=== PATIENT | male | born 1940 | race Caucasian/White ===

== ENCOUNTER → 2016-04-03 | Outpatient (CLI) | payer OTHER ==
[~2016-04-03] MED LIST: ALLO300T2 PO; ASCA500 PO; ASPI325T39 PO; BNC20 PO; CINN1POW; ERGO1CAP35 PO; FLAXPOW2; GLIM4TAB PO; METF-384 PO; MULTCHW PO; SIMV20TA2 PO; TEST1SOL TD; XNX25 PO
[2016-04-03 13:50] LABS: URINE APPEARANCE CLEAR (CLEAR); URINE BILIRUBIN NEG (NEG); URINE COLOR DK YELLOW; URINE EPITHELIAL CELL AUTO 0-5 /lpf (0-5); URINE NITRITE NEG (NEG); URINE SPECIFIC GRAVITY 1.021 (1.000-1.030); UROBILINOGEN NEG (NEG)
[2016-04-03 13:58] LABS: MANUAL MICROSCOPIC REQUIRED? NO; REVIEW REQ? NO
== END | disposition home or self-care (01) ==
LOC: C.LAB1850 11:42
PROVIDERS: ATTEND Internal Medicine
DX: R39.198 Other difficulties with micturition (principal)

== ENCOUNTER → 2016-07-07 | Outpatient (CLI) | payer OTHER ==
[2016-07-07 11:13] LABS: ALT/SGPT 36 U/L (12-78); AST/SGOT 19 U/L (15-37); BLOOD UREA NITROGEN 24 mg/dl (7-18); BUN/CREATININE RATIO 18.7 (10-20); CALCIUM 9.1 mg/dl (8.5-10.1); CARBON DIOXIDE 25 mmol/L (21-32); CHLORIDE 109 mmol/L (98-107); CHOLESTEROL 123 mg/dl (0-200); GLUCOSE 111 mg/dl (70-99); POTASSIUM 4.2 mmol/L (3.5-5.1); SODIUM 143 mmol/L (136-145)
[2016-07-07 11:15] LABS: CHOLESTEROL/HDL RATIO 2.7; HDL CHOLESTEROL 45 mg/dl; LDL CHOLESTEROL CALCULATED 55 mg/dl; TRIGLYCERIDES 115 mg/dl (0-150); VERY LOW DENSITY LIPOPROT CALC 23 mg/dl
[2016-07-07 11:17] LABS: ESTIMATED AVERAGE GLUCOSE 146 mg/dl; HA1C FLAG Normal (Normal)
== END | disposition home or self-care (01) ==
LOC: C.LABBC 09:27
PROVIDERS: ATTEND Internal Medicine
DX: E11.9 Type 2 diabetes mellitus without complications (principal); E78.5 Hyperlipidemia, unspecified; I10 Essential (primary) hypertension

== ENCOUNTER → 2016-08-16 | Outpatient (CLI) | payer OTHER ==
[~2016-08-16] MED LIST changes: +GADAVIST IV PRN
--- NOTE | 2016-08-16 19:09 | DIAGNOSTIC IMAGING REPORT ---
ADDENDUM Comparison is possible now to outside radiographs. Comparison suggests a very small intertarsal osteophyte formation on a a degenerative basis. A very small rudimentary heel spur versus anatomic variation may be considered. No significant pathologic findings are identified. The original interpretation of the MRI is unchanged. Electronically signed by: Frank Wiggins M.D. 08/17/2016 9:42 AM Dictated Date/Time: 08/17/2016 9:40 AM ORIGINAL REPORT MRI right ankle RIGHT LOWER EXT NONJOINT COMBO CLINICAL HISTORY: CYST ON R HEEL Right abnormal cyst TECHNIQUE: Multiaxial MRI acquisition COMPARISON STUDY: None FINDINGS: Signal characteristics the osseous structures are in general unremarkable. There is evidence for several degenerative subchondral cysts of the subtalar joint. There are mild degenerative changes of the articular services throughout. The interosseous ligament is intact. All major ligamentous and tendinous structures are unremarkable. Findings of mild soft tissue edema with subcutaneous tissues inferior to the distal fibula. A component of mild peroneal tendinitis is considered. There is no evidence for abnormal postcontrast enhancement. No abnormal mass or collection is identified. The Achilles tendon is intact. Structures the plantar fascia are unremarkable. IMPRESSION: 1. Mild peroneal tendinitis. 2. Mild degenerative subchondral cystic change of the subtalar joint 3. No evidence for abnormal mass collection or postcontrast enhancement. Electronically signed by: Frank Wiggins M.D. 08/16/2016 7:08 PM Dictated Date/Time: 08/16/2016 7:06 PM
== END | disposition home or self-care (01) ==
LOC: C.MRI 16:50
PROVIDERS: ATTEND Podiatrist Primary Podiatric Medicine
DX: M25.871 Other specified joint disorders, right ankle and foot (principal); M76.71 Peroneal tendinitis, right leg

== ENCOUNTER → 2016-10-24 | Outpatient (CLI) | payer OTHER ==
[~2016-10-24] MED LIST changes: -GADAVIST IV PRN
[2016-10-24 12:24] LABS: BASO % 0.2 %; BASO ABS # 0.01 K/uL (0-0.2); COMPLETE YES; EOS % 1.6 %; HEMATOCRIT 42.1 % (42-52); IG% 0.2 %; LYMPH % 31.2 %; LYMPH ABS # 1.38 K/uL (1.2-3.4); MEAN CELL VOLUME 94.6 fL (80-100); MEAN CORPUSCULAR HEMOGLOBIN 31.7 pg (25-34); MEAN CORPUSCULAR HGB CONC 33.5 g/dl (32-36); MEAN PLATELET VOLUME 9.4 fL (7.4-10.4); MONO % 7.9 %; NEUT % 58.9 %; PLATELET COUNT 166 K/uL (130-400); RED BLOOD COUNT 4.45 M/uL (4.7-6.1); WHITE BLOOD COUNT 4.43 K/uL (4.8-10.8)
[2016-10-24 12:38] LABS: BLOOD UREA NITROGEN 23 mg/dl (7-18); BUN/CREATININE RATIO 17.9 (10-20); CALCIUM 9.1 mg/dl (8.5-10.1); CARBON DIOXIDE 24 mmol/L (21-32); CHLORIDE 110 mmol/L (98-107); GLUCOSE 142 mg/dl (70-99); POTASSIUM 4.2 mmol/L (3.5-5.1); SODIUM 141 mmol/L (136-145); URIC ACID 6.2 mg/dl (2.6-7.2)
[2016-10-24 12:48] LABS: CHOLESTEROL 123 mg/dl (0-200); HDL CHOLESTEROL 41 mg/dl; LDL CHOLESTEROL CALCULATED 58 mg/dl; TRIGLYCERIDES 120 mg/dl (0-150); VERY LOW DENSITY LIPOPROT CALC 24 mg/dl
[2016-10-24 13:14] LABS: ESTIMATED AVERAGE GLUCOSE 146 mg/dl; HA1C FLAG Normal (Normal)
== END | disposition home or self-care (01) ==
LOC: C.LAB1850 10:22
PROVIDERS: ATTEND Internal Medicine
DX: E11.9 Type 2 diabetes mellitus without complications (principal); E29.1 Testicular hypofunction; I10 Essential (primary) hypertension; M10.9 Gout, unspecified; E55.9 Vitamin D deficiency, unspecified; E78.5 Hyperlipidemia, unspecified

== ENCOUNTER → 2017-04-25 | Outpatient (CLI) | payer OTHER, MEDICARE ==
[2017-04-25 10:52] LABS: HEMOGLOBIN A1C 6.6 % (4.5-5.6)
[2017-04-25 11:00] LABS: ALT/SGPT 31 U/L (12-78); AST/SGOT 17 U/L (15-37); BLOOD UREA NITROGEN 29 mg/dl (7-18); CALCIUM 9.2 mg/dl (8.5-10.1); CARBON DIOXIDE 26 mmol/L (21-32); CREATININE 1.46 mg/dl (0.60-1.40); GLUCOSE 164 mg/dl (70-99); POTASSIUM 4.3 mmol/L (3.5-5.1); SODIUM 139 mmol/L (136-145)
[2017-04-25 11:03] LABS: CHOLESTEROL 125 mg/dl (0-200); LDL CHOLESTEROL CALCULATED 58 mg/dl
== END | disposition home or self-care (01) ==
LOC: C.LAB1850 09:33
PROVIDERS: ATTEND Internal Medicine
DX: E11.9 Type 2 diabetes mellitus without complications (principal); E78.5 Hyperlipidemia, unspecified

== ENCOUNTER → 2017-07-17 | Outpatient (CLI) | payer OTHER, MEDICARE ==
--- NOTE | 2017-07-17 16:21 | DIAGNOSTIC IMAGING REPORT ---
CHEST 2 VIEWS ROUTINE CLINICAL HISTORY: COUGH COMPARISON STUDY: 06/10/2015 FINDINGS: The cardiac and mediastinal contours are normal. There is no evidence of focal pulmonary consolidation. There is no evidence of failure. No pleural effusions are visualized.[ IMPRESSION: No active disease in the chest. Electronically signed by: Blake Cabrera M.D. 07/17/2017 4:20 PM Dictated Date/Time: 07/17/2017 4:20 PM
[2017-07-17 16:52] LABS: BASO % 0.5 %; BASO ABS # 0.03 K/uL (0-0.2); EOS % 1.6 %; EOS ABS # 0.09 K/uL (0-0.5); HEMATOCRIT 39.5 % (42-52); HEMOGLOBIN 13.9 g/dL (14.0-18.0); IG# 0.01 K/uL (0.00-0.02); LYMPH % 24.2 %; LYMPH ABS # 1.37 K/uL (1.2-3.4); MEAN CELL VOLUME 91.6 fL (80-100); MEAN CORPUSCULAR HEMOGLOBIN 32.3 pg (25-34); MEAN CORPUSCULAR HGB CONC 35.2 g/dl (32-36); MEAN PLATELET VOLUME 9.2 fL (7.4-10.4); MONO ABS # 0.45 K/uL (0.11-0.59); NEUT % 65.5 %; PLATELET COUNT 164 K/uL (130-400); RED CELL DISTRIBUTION WIDTH CV 12.7 % (11.5-14.5); RED CELL DISTRIBUTION WIDTH SD 42.7 fL (36.4-46.3); WHITE BLOOD COUNT 5.65 K/uL (4.8-10.8)
[2017-07-17 17:22] LABS: ALBUMIN 3.8 gm/dl (3.4-5.0); ALT/SGPT 29 U/L (12-78); AST/SGOT 15 U/L (15-37); BLOOD UREA NITROGEN 23 mg/dl (7-18); CALCIUM 8.8 mg/dl (8.5-10.1); CARBON DIOXIDE 24 mmol/L (21-32); CREATININE 1.31 mg/dl (0.60-1.40); GLUCOSE 113 mg/dl (70-99); POTASSIUM 4.4 mmol/L (3.5-5.1); SODIUM 140 mmol/L (136-145)
[2017-07-17 17:32] LABS: ALKALINE PHOSPHATASE 72 U/L (45-117); TOTAL PROTEIN 7.5 gm/dl (6.4-8.2)
[2017-07-18 06:40] LABS: HEMOGLOBIN A1C 7.2 % (4.5-5.6)
== END | disposition home or self-care (01) ==
LOC: C.RAD1850 15:50
PROVIDERS: ATTEND Internal Medicine
DX: R05 Cough (principal); E11.9 Type 2 diabetes mellitus without complications; R63.4 Abnormal weight loss

== ENCOUNTER → 2017-10-25 | Outpatient (CLI) | payer OTHER, MEDICARE ==
[~2017-10-25] MED LIST changes: +ALPR0.254 PO; +ASPI-461 PO; -ASPI325T39 PO; +CHOL2000 PO; -ERGO1CAP35 PO; +MISCCAP PO; -TEST1SOL TD; +TESTOSTERONE TOP; -XNX25 PO
[2017-10-25 12:23] LABS: ALT/SGPT 28 U/L (12-78); AST/SGOT 19 U/L (15-37); BLOOD UREA NITROGEN 18 mg/dl (7-18); CALCIUM 9.3 mg/dl (8.5-10.1); CARBON DIOXIDE 24 mmol/L (21-32); CHOLESTEROL 127 mg/dl (0-200); CREATININE 1.25 mg/dl (0.60-1.40); GLUCOSE 164 mg/dl (70-99); LDL CHOLESTEROL CALCULATED 57 mg/dl; POTASSIUM 4.2 mmol/L (3.5-5.1); SODIUM 140 mmol/L (136-145)
[2017-10-25 12:32] LABS: HEMOGLOBIN A1C 6.6 % (4.5-5.6)
== END | disposition home or self-care (01) ==
LOC: C.LAB1850 10:24
PROVIDERS: ATTEND Internal Medicine
DX: E11.9 Type 2 diabetes mellitus without complications (principal); E55.9 Vitamin D deficiency, unspecified; E78.5 Hyperlipidemia, unspecified

== ENCOUNTER 2024-08-27 19:31 | Inpatient (IN) ==
[2024-08-27 20:02] LABS: Basophils # (auto) 0.03 K/uL (0.00-0.20); Basophils % (auto) 0.3 %; Eosinophils # (auto) 0.05 K/uL (0.00-0.50); Eosinophils % (auto) 0.5 %; Hematocrit (blood only) 45.9 % (42.0-52.0); Hemoglobin 15.4 g/dl (14.0-18.0); Immature Granulocytes # (auto) 0.04 K/uL (0.01-0.20); Immature Granulocytes % (auto) 0.4 %; Lymphocytes % (auto) 12.3 %; Mean Corpuscular Hemoglobin 31.4 pg (25.0-34.0); Mean Corpuscular Hgb Conc 33.6 g/dL (32.0-36.0); Mean Corpuscular Volume 93.7 fL (80.0-100.0); Monocytes # (auto) 0.96 K/uL (0.11-0.59); Monocytes % (auto) 9.8 %; Neutrophils % (auto) 76.7 %; Platelet Count 151 K/uL (130-400); RDW Coefficient of Variation 13.1 % (11.5-14.5); RDW Standard Deviation 44.9 fL (36.4-46.3); White Blood Count 9.78 K/ul (4.8-10.8)
[2024-08-27 20:18] LABS: BUN Creatinine Ratio 17.2 (10-20); Bilirubin,Total 1.1 mg/dl (0.2-1.0); Calcium 9.3 mg/dl (8.6-10.3); Creatinine Clr Calc Pharmacy 29.7 ml/min; Globulin 3.5 gm/dl (2.5-4.0); Potassium 4.8 mmol/L (3.5-5.1); Total Protein 7.1 gm/dl (6.0-8.3)
[2024-08-27 20:25] LABS: Troponin I High Sensitivity 24.8 pg/ml (0-20)
[2024-08-27 20:33] LABS: Prothrombin Time 11.2 Seconds (9.0-12.0)
--- NOTE | 2024-08-27 20:56 | History & Physical Report ---
Date of Service August 27, 2024 Assessment & Plan (1) Chest pain: (2) LUIS (acute kidney injury): (3) CKD stage 3 due to type 2 diabetes mellitus: (4) Hypertension: Plan This patient is an 83-year-old male with history of HTN, primary hypogonadism, DM2 with peripheral neuropathy, HLD, CKD stage III, osteopenia, gout, previous PMR now off steroids, lumbar spinal stenosis, OA, anxiety/insomnia, who presents to the ED with several days of right sided pleuritic chest pain radiating to the back, worse with deep breaths and coughing. He denies fevers or chills or productive cough. He had been working on his hands and knees on the deck the day that it started and thought at first that maybe he strained a muscle. It does not seem to get worse with any certain position or movement. He has been feeling less stamina and more short of breath over the past few days. He was seen in the outpatient PCP office today and had a pulse ox of 85% on the right hand and 93% on the left hand with sinus tachycardia. He was sent for a D-dimer test which was quite elevated at 4000. He was referred to the ER but because of a creatinine of 2.0, CT angiogram of the chest could not be performed. In the ED, he was with sinus tachycardia, normal blood pressure, mildly elevated troponin, pulse ox 93% on room air, and ECG without ischemic changes. No further treatment or diagnostic tests were performed in the ED. He will be admitted for further evaluation of right sided chest pain. #Right sided chest pain-with pleuritic right-sided chest pain, tachycardia, transient hypoxemia at PCP office, mildly elevated troponin, and significantly elevated D-dimer at 4000-concern for PE. No evidence of DVT on physical examination and no provoking factors for VTE (no recent procedures, long travel, no sedentary lifestyle, no hereditary hypercoagulable disorders, no known underlying malignancy). ECG without ischemic changes and do not suspect pain related to acute coronary syndrome. Does not seem to be worse with movement and no tenderness to palpation-does not seem to be MSK in nature. Lungs are clear but CXR with trace pleural effusion on my interpretation. - Admit to PCU for telemetry monitoring - Check VQ scan for probability of PE; check lower extremity Dopplers bilateral - Start empiric heparin drip while awaiting VQ scan-if VQ scan low probability and venous Dopplers lower extremities negative, can stop heparin drip - Check CT chest without contrast to assess for MSK injury, pneumonia or pulmonary infarct - Check CT abdomen/pelvis given abdominal distention and to assess for underlying malignancy in case of VTE - Trend serial troponin, check BNP - Check echocardiogram - Tylenol for mild pain, IV Dilaudid 0.25 Mg every 4 hours as needed moderate to severe pain #LUIS on CKD stage III-creatinine above baseline at 2.0, baseline 1.7. He does not follow with nephrology. - Hold home Jardiance, metformin, spironolactone, telmisartan - Follow BMP - Avoid nephrotoxins and renally dose medications when appropriate #DM2 with peripheral neuropathy/primary hypogonadism-follows with endocrinology, diabetes is well-controlled with HgbA1c 7.3% in 07/2024 - Continue Lantus 10 units at bedtime, NovoLog supplemental insulin - Holding home Ozempic, metformin, and Jardiance - Hold home testosterone injection #Gout/osteopenia-no acute issues - Continue home allopurinol #Anxiety/insomnia-no acute issues, has not taken alprazolam in a long time apparently #HTN/HLD-blood pressures are normal - Holding home spironolactone, telmisartan for LUIS - Continue home simvastatin #DVT prophylaxis-heparin drip Disposition-admit to PCU History of Present Illness Chief Complaint: Chest pain, elevated D-dimer Primary Care Provider: Viet Navarro MD This patient is an 83-year-old male with history of HTN, primary hypogonadism, DM2 with peripheral neuropathy, HLD, CKD stage III, osteopenia, gout, previous PMR now off steroids, lumbar spinal stenosis, OA, anxiety/insomnia, who presents to the ED with several days of right sided pleuritic chest pain radiating to the back, worse with deep breaths and coughing. He denies fevers or chills or productive cough. He had been working on his hands and knees on the deck the day that it started and thought at first that maybe he strained a muscle. It does not seem to get worse with any certain position or movement. He has been feeling less stamina and more short of breath over the past few days. He was seen in the outpatient PCP office today and had a pulse ox of 85% on the right hand and 93% on the left hand with sinus tachycardia. He was sent for a D-dimer test which was quite elevated at 4000. He was referred to the ER but because of a creatinine of 2.0, CT angiogram of the chest could not be performed. In the ED, he was with sinus tachycardia, normal blood pressure, mildly elevated troponin, pulse ox 93% on room air, and ECG without ischemic changes. No further treatment or diagnostic tests were performed in the ED. He will be admitted for further evaluation of right sided chest pain. Allergies Allergy/AdvReac Type Severity Reaction Status Date / Time doxycycline Allergy Intermediate Rash Verified 08/27/24 12:52 Penicillins Allergy Mild Hives Verified 08/27/24 12:52 VARINDER Inhibitors Allergy Unknown Unknown Verified 08/27/24 12:52 Beta-Blockers Allergy Unknown Unknown Verified 08/27/24 12:52 (Beta-Adrenergic Bloc clindamycin Allergy Unknown Unknown Verified 08/27/24 12:52 losartan Allergy Unknown Unknown Verified 08/27/24 12:52 sitagliptin Allergy Unknown Unknown Verified 08/27/24 12:52 semaglutide [From Ozempic] AdvReac Intermediate Diarrhea Verified 08/27/24 12:52 Home Medications Medication Instructions Recorded Confirmed Type ascorbic acid (vitamin C) 500 mg 500 mg PO QAM 11/27/17 08/27/24 History tablet (Vitamin C) flaxseed 1 ea PO QAM 11/13/18 08/27/24 History osmpolyc-uv-ntswe 300 mcg-K 60 1 tab PO QAM 11/13/18 08/27/24 History mcg-lycop 600 mcg-lutein 300 mcg tablet (Centrum Silver Men) cholecalciferol (vitamin D3) 50 2,000 unit PO UD 12/02/19 08/27/24 History mcg (2,000 unit) capsule (Vitamin D3) Zn-pyg gzlk-cygghk-lfq palmet 1 cap PO QAM 03/06/22 08/27/24 History capsule alprazolam 0.25 mg tablet 0.25 mg PO UD PRN anxiety 03/06/22 08/27/24 History blood sugar diagnostic #300 ea 07/23/23 08/27/24 Rx allopurinol 300 mg tablet 150 mg (1/2 x 300 mg) PO QAM #45 02/27/24 08/27/24 Rx tabs metformin 1,000 mg tablet 500 mg (1/2 x 1,000 mg) PO BID 03/24/24 08/27/24 Rx #180 tabs blood-glucose meter (OneTouch 05/08/24 08/27/24 History Ultra2 Meter) empagliflozin 10 mg tablet 10 mg PO DAILY #90 tabs 05/08/24 08/27/24 Rx (Jardiance) lancets 33 gauge 05/08/24 08/27/24 History psyllium seed (sugar) oral powder 1 tbsp PO DAILY 05/08/24 08/27/24 History (Metamucil [place] oral powder) spironolactone 25 mg tablet 25 mg PO DAILY #90 tabs 05/11/24 08/27/24 Rx pen needle, diabetic 32 gauge x #300 ea 05/29/24 08/27/24 Rx 5/32" semaglutide 0.25 mg or 0.5 mg (2 0.25 mg (0.368 mL) subcut .Once a 07/09/24 08/27/24 Rx mg/3 mL) subcutaneous pen injector week #3 mL (Ozempic) simvastatin 20 mg tablet 20 mg PO HS #90 tabs 07/21/24 08/27/24 Rx testosterone cypionate 100 mg/mL 25 mg (0.25 mL) subcut Q7D #10 mL 08/04/24 08/27/24 Rx intramuscular oil (Depo-Testosterone) insulin aspart U-100 100 unit/mL 6 unit (0.06 mL) subcut DAILY #15 08/19/24 08/27/24 Rx (3 mL) subcutaneous pen (Novolog mL FlexPen U-100 Insulin aspart) telmisartan 80 mg tablet 80 mg PO QAM #90 tabs 08/20/24 08/27/24 Rx insulin degludec 100 unit/mL (3 See Rx Instructions .Route .COMPLEX 08/27/24 08/27/24 History mL) subcutaneous pen (Tresiba FlexTouch U-100 insulin) Past Med/Surg History Problem List (Updated 08/27/24 @ 22:40 by Nohemi Palomino MD) LUIS (acute kidney injury) Chest pain Medicare annual wellness visit, subsequent 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 Diabetes type 2, controlled (Chronic) Dyslipidemia Overweight Loss of protective sensation of skin of foot Dysesthesia Diabetic peripheral neuropathy associated with type 2 diabetes mellitus Polymyalgia rheumatica DJD (degenerative joint disease), lumbar Osteopenia Bilateral hip joint arthritis Lumbar stenosis Lumbar spondylosis Gout (Chronic) Hypertension (Chronic) History of colon polyps Medical History History of dysphagia "chews large pills or crush and put in applesauce; has to swallow most things twice" Vitamin D deficiency Surgical History Hx of left cataract extraction History of colonoscopy History of tooth extraction WISDOM TEETH History of tonsillectomy and adenoidectomy H/O right cataract extraction Family History Grandmother Family history of diabetes mellitus MATERNAL Father Aortic aneurysm Mother Lung cancer Denies family history of Ovarian cancer Prostate cancer Myocardial infarction Breast cancer Colorectal cancer Social History Smoking Status: Never smoker Tobacco Type: Declines Age Started Using Tobacco: 16; Age Quit Using Tobacco: 36; packs per day: 1; Second Hand Exposure: Yes (growing up); Do You Dip or Chew Tobacco: No; Hx Alcohol Use: Yes (Occasional wine ) Alcohol type: wine Hx Substance Use: No Preferred Language: [place] Communication Ability: Effective Visual Impairment: No Limitations Hearing Ability: Normal Edge Burnisher Required: No Beliefs That Will Affect Care: None marital status: Current Living Situation: Spouse current occupational status: retired How many Children do You have: 5 Feels Safe at Home: Yes Childhood Exposure to Second-Hand Smoke: Yes Dental Care, Regularly: Yes Physical Activity Frequency: 3-4 Times per Week Seatbelt Use: always Sunscreen Use: Yes Assistive Devices: Glasses Review of Systems Review of Systems: All systems reviewed & are unremarkable except as noted in HPI & below Patient reports increasing abdominal distention and constipation Physical Exam Constitutional: WD/WN, vitals as above Eyes: PERRL, conjunctivae normal, anicteric sclerae ENMT: external ear and nose normal, oropharynx normal Neck: trachea midline, no thyromegaly Respiratory: normal respiratory effort, lungs clear to auscultation Cardiovascular: RRR, no murmur, no edema Chest (Breasts): Chest: normal inspection of chest Additional Comments: No tenderness to palpation over chest wall or back Gastrointestinal (Abdomen): normal bowel sounds, soft, nontender, no hepatosplenomegaly (Mild distention) Musculoskeletal: Extremities: extremities normal to inspection; no cyanosis and no clubbing Skin: no rashes, warm and dry Neurologic: moves all extremities and awake; no focal motor deficits Psychiatric: A+Ox3, euthymic affect Lymphatic: no lymphedema Results & Data Results & Data Vital Signs (Past 12 Hours) Vital Signs Temp Pulse Resp BP Pulse Ox O2 Del Method 08/27/24 19:45 106 H 08/27/24 19:37 100 H 21 93 Room Air 08/27/24 19:35 36.6 C 110 H 20 112/64 91 Room Air Laboratory Results CBC, PT/INR, D-dimer, BMP, LFTs, troponin, lipase reviewed Diagnostic Findings CXR PA/LAT images personally reviewed by me-lungs are clear with a slight blunting of the right costophrenic angle likely trace pleural effusion-official radiology report pending ECG Additional Comments: ECG on 08/27/2024 at 1947 with sinus tachycardia, first-degree AV block, rate 102, no ischemic changes Code Status & VTE Plan Code Status Full code VTE Prophylaxis Plan VTE Prophylaxis will be ordered: Yes PG Care Time/CCT Total # of Minutes Spent Total Time Spent with Patient: Total time spent is greater than 50% in coordination of care (as documented) at patient's floor/unit and/or counseling patient: Coding Level of Care Code 97358 INT INP/OBS CARE 3/75MIN Diagnoses Chest pain R07.9 LUIS (acute kidney injury) N17.9 CKD stage 3 due to type 2 diabetes mellitus E11.22; N18.30 Primary hypertension I10 Hypertension type: primary hypertension (4) Hypertension Hypertension type: primary hypertension Qualified Code(s): I10 - Essential (primary) hypertension
[2024-08-27] MEDS ORDERED: HEPARIN SOD (PORCINE) 1000 UNIT/ML IV ONE (23:15)
[2024-08-27 23:17] LABS: Partial Thromboplastin Time 27 Seconds (21-31)
[2024-08-27] MEDS ORDERED: ONDANSETRON INJ 2 MG/ML 2 ML VIAL IV PRN (23:44)
[2024-08-27] MEDS ORDERED: DEXTROSE 50% 50 ML SYRINGE IV PRN (23:44)
[2024-08-27] MEDS ORDERED: CARBOHYDRATES FOR HYPOGLYCEMIA PO PRN (23:44)
[2024-08-27] MEDS ORDERED: GLUCOSE 40% GEL 15 GM TUBE PO PRN (23:44)
[2024-08-27] MEDS ORDERED: GLUCAGON FOR INJ 1 MG VIAL SQ PRN (23:44)
[2024-08-27] MEDS ORDERED: GLUCOSE 10 TAB/TUBE PO PRN (23:44)
--- NOTE | 2024-08-27 23:44 | Emergency Department Note ---
History of Present Illness General Chief Complaint: Referred by Doctor Stated Complaint: BLOOD CLOT RT LUNG CHECK, DOC REFERRAL Time Seen by Provider: 08/27/24 19:43 History of Present Illness Provider Complaint: + abnormal lab Initial visit (ago): day(s) (4) Returns today for: + called because of abnormal lab/test Description of abnormal result: Elevated D-dimer Associated symptoms: + chest pain (Right-sided chest pain. Worsened with deep breathing.) and + shortness of breath; no fever, no chills or no abdominal pain Home Medications Medication Instructions Recorded Confirmed Type ascorbic acid (vitamin C) 500 mg 500 mg PO QAM 11/27/17 08/27/24 History tablet (Vitamin C) flaxseed 1 ea PO QAM 11/13/18 08/27/24 History yjbtnqim-cy-lnkil 300 mcg-K 60 1 tab PO QAM 11/13/18 08/27/24 History mcg-lycop 600 mcg-lutein 300 mcg tablet (Centrum Silver Men) cholecalciferol (vitamin D3) 50 2,000 unit PO UD 12/02/19 08/27/24 History mcg (2,000 unit) capsule (Vitamin D3) Zn-pyg uknl-qfdled-utv palmet 1 cap PO QAM 03/06/22 08/27/24 History capsule alprazolam 0.25 mg tablet 0.25 mg PO UD PRN anxiety 03/06/22 08/27/24 History blood sugar diagnostic #300 ea 07/23/23 08/27/24 Rx allopurinol 300 mg tablet 150 mg (1/2 x 300 mg) PO QAM #45 02/27/24 08/27/24 Rx tabs metformin 1,000 mg tablet 500 mg (1/2 x 1,000 mg) PO BID 03/24/24 08/27/24 Rx #180 tabs blood-glucose meter (OneTouch 05/08/24 08/27/24 History Ultra2 Meter) empagliflozin 10 mg tablet 10 mg PO DAILY #90 tabs 05/08/24 08/27/24 Rx (Jardiance) lancets 33 gauge 05/08/24 08/27/24 History psyllium seed (sugar) oral powder 1 tbsp PO DAILY 05/08/24 08/27/24 History (Metamucil [place] oral powder) spironolactone 25 mg tablet 25 mg PO DAILY #90 tabs 05/11/24 08/27/24 Rx pen needle, diabetic 32 gauge x #300 ea 05/29/24 08/27/24 Rx /32" semaglutide 0.25 mg or 0.5 mg (2 0.25 mg (0.368 mL) subcut .Once a 07/09/24 08/27/24 Rx mg/3 mL) subcutaneous pen injector week #3 mL (Ozempic) simvastatin 20 mg tablet 20 mg PO HS #90 tabs 07/21/24 08/27/24 Rx testosterone cypionate 100 mg/mL 25 mg (0.25 mL) subcut Q7D #10 mL 08/04/24 08/27/24 Rx intramuscular oil (Depo-Testosterone) insulin aspart U-100 100 unit/mL 6 unit (0.06 mL) subcut DAILY #15 08/19/24 08/27/24 Rx (3 mL) subcutaneous pen (Novolog mL FlexPen U-100 Insulin aspart) telmisartan 80 mg tablet 80 mg PO QAM #90 tabs 08/20/24 08/27/24 Rx insulin degludec 100 unit/mL (3 See Rx Instructions .Route .COMPLEX 08/27/24 08/27/24 History mL) subcutaneous pen (Tresiba FlexTouch U-100 insulin) Allergies Allergy/AdvReac Type Severity Reaction Status Date / Time doxycycline Allergy Intermediate Rash Verified 08/27/24 12:52 Penicillins Allergy Mild Hives Verified 08/27/24 12:52 VARINDER Inhibitors Allergy Unknown Unknown Verified 08/27/24 12:52 Beta-Blockers Allergy Unknown Unknown Verified 08/27/24 12:52 (Beta-Adrenergic Bloc clindamycin Allergy Unknown Unknown Verified 08/27/24 12:52 losartan Allergy Unknown Unknown Verified 08/27/24 12:52 sitagliptin Allergy Unknown Unknown Verified 08/27/24 12:52 semaglutide [From Ozempic] AdvReac Intermediate Diarrhea Verified 08/27/24 12:52 Past Med/Surg History Problem List (Updated 08/27/24 @ 23:44 by Dionicio Rodriguez MD) D-dimer, elevated (Acute) LUIS (acute kidney injury) (Acute) Chest pain (Acute) Medicare annual wellness visit, subsequent 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 Diabetes type 2, controlled (Chronic) Dyslipidemia Overweight Loss of protective sensation of skin of foot Dysesthesia Diabetic peripheral neuropathy associated with type 2 diabetes mellitus Polymyalgia rheumatica DJD (degenerative joint disease), lumbar Osteopenia Bilateral hip joint arthritis Lumbar stenosis Lumbar spondylosis Gout (Chronic) Hypertension (Chronic) History of colon polyps Medical History History of dysphagia "chews large pills or crush and put in applesauce; has to swallow most things twice" Vitamin D deficiency Surgical History Hx of left cataract extraction History of colonoscopy History of tooth extraction WISDOM TEETH History of tonsillectomy and adenoidectomy H/O right cataract extraction Family History Grandmother Family history of diabetes mellitus MATERNAL Father Aortic aneurysm Mother Lung cancer Denies family history of Ovarian cancer Prostate cancer Myocardial infarction Breast cancer Colorectal cancer Social History Smoking Status: Never smoker Tobacco Type: Declines Age Started Using Tobacco: 16; Age Quit Using Tobacco: 36; packs per day: 1; Second Hand Exposure: Yes (growing up); Do You Dip or Chew Tobacco: No; Hx Alcohol Use: Yes (Occasional wine ) Alcohol type: wine Hx Substance Use: No Preferred Language: Bots[place] Communication Ability: Effective Visual Impairment: No Limitations Hearing Ability: Normal Grocery Clerk Required: No Beliefs That Will Affect Care: None marital status: Current Living Situation: Spouse current occupational status: retired How many Children do You have: 5 Feels Safe at Home: Yes Childhood Exposure to Second-Hand Smoke: Yes Dental Care, Regularly: Yes Physical Activity Frequency: 3-4 Times per Week Seatbelt Use: always Sunscreen Use: Yes Assistive Devices: Glasses Physical Exam 2 Vital Signs: Vital Signs - 24 hr 08/27/24 19:35 08/27/24 19:37 08/27/24 19:45 Temperature 36.6 C Temperature Source Temporal Artery Sc an Pulse Rate 110 H 100 H 106 H Pulse Rate from Sp O2 Sensor Respiratory Rate 20 21 Blood Pressure 112/64 Blood Pressure Vangie n 80 Blood Pressure Pos ition Sitting Pulse Oximetry 91 93 Oxygen Delivery Me thod Room Air Room Air Sepsis Recent Feve r Within 48 Hours No Sepsis New/Unexpla ined Change in Men fred Status N/A Sepsis Action Take n by Nursing No Action Required 08/27/24 19:45 08/27/24 19:51 08/27/24 20:06 Temperature Temperature Source Pulse Rate 105 H 101 H 98 H Pulse Rate from Sp O2 Sensor 98 H Respiratory Rate 30 H 20 20 Blood Pressure 126/73 120/65 Blood Pressure Vangie n 90 83 Blood Pressure Pos ition Pulse Oximetry 93 Oxygen Delivery Me thod Sepsis Recent Feve r Within 48 Hours Sepsis New/Unexpla ined Change in Men fred Status Sepsis Action Take n by Nursing 08/27/24 20:30 08/27/24 21:42 Temperature Temperature Source Pulse Rate 96 H 94 H Pulse Rate from Sp O2 Sensor 96 H 94 H Respiratory Rate 23 21 Blood Pressure 115/69 120/75 Blood Pressure Vangie n 84 90 Blood Pressure Pos ition Pulse Oximetry 94 95 Oxygen Delivery Me thod Sepsis Recent Feve r Within 48 Hours Sepsis New/Unexpla ined Change in Men fred Status Sepsis Action Take n by Nursing Physical Exam: Physical Exam GENERAL: oriented to person, place, and time. appears well-developed and well- nourished. HENT: Exam performed. - Head: Normocephalic and atraumatic. EYES: Conjunctivae and EOM are normal. Right eye exhibits no discharge. Left eye exhibits no discharge. No scleral icterus. NECK: Normal range of motion. Neck supple. No JVD present. CV: Normal rate, regular rhythm, normal heart sounds and intact distal pulses. There is no peripheral edema. Palpable radial pulses bue. PULM/CHEST: Effort normal and breath sounds normal. No respiratory distress. No stridor. no wheezes. no rales. ABD: The abdomen is soft. There is no tenderness. NEURO: Motor and sensation grossly intact. SKIN: Skin is warm and dry. He is not diaphoretic. PSYCH: normal mood and affect. Behavior is normal. Judgment and thought content normal. Course Course 1942: The patient was evaluated in room C6. A complete history and physical exam was performed Cardiac monitoring: An order was placed for continuous cardiac monitoring. The monitor shows a rate of 100 with sinus rhythm interpreted by me External medical records reviewed. Patient had outpatient blood work today which showed a D-dimer of 4020. Patient's creatinine today was 1.74. Chest x- ray was conducted outpatient which was unremarkable. 2030: Vital signs stable. Labs show a elevated high-sensitivity troponin of 24.8. Patient will be admitted to the [facility] team to have a VQ scan done given his elevated creatinine and elevated D-dimer. Medical Decision Making Laboratory Data Attestation: I reviewed the patient's lab results. 08/27/24 19:47 08/27/24 19:47 Lab Results 08/27/24 08/27/24 Range/Units 19:47 21:57 WBC 9.78 (4.8-10.8) K/ul RBC 4.90 (4.70-6.10) M/uL Hgb 15.4 (14.0-18.0) g/dl Hct 45.9 (42.0-52.0) % MCV 93.7 (80.0-100.0) fL MCH 31.4 (25.0-34.0) pg MCHC 33.6 (32.0-36.0) g/dL RDW Std Deviation 44.9 (36.4-46.3) fL RDW Coeff of Rayshawn 13.1 (11.5-14.5) % Plt Count 151 (130-400) K/uL MPV 9.0 L (9.4-12.4) fL Immature Gran % (Auto) 0.4 % Neut % (Auto) 76.7 % Lymph % (Auto) 12.3 % Buchanan % (Auto) 9.8 % Eos % (Auto) 0.5 % Baso % (Auto) 0.3 % Neut # (Auto) 7.50 H (1.40-6.50) K/uL Lymph # (Auto) 1.20 (1.20-3.40) K/uL Buchanan # (Auto) 0.96 H (0.11-0.59) K/uL Eos # (Auto) 0.05 (0.00-0.50) K/uL Baso # (Auto) 0.03 (0.00-0.20) K/uL Immature Gran # (Auto) 0.04 (0.01-0.20) K/uL PT 11.2 (9.0-12.0) Seconds INR 1.0 (0.9-1.1) APTT 27 (21-31) Seconds PTT Ratio 1.0 Sodium 136 (136-145) mmol/L Potassium 4.8 (3.5-5.1) mmol/L Chloride 105 (98-107) mmol/L Carbon Dioxide 22 (21-32) mmol/L Anion Gap 9 (3-11) BUN 36 H (6-23) mg/dl Creatinine 2.09 H (0.6-1.4) mg/dl Est Cr Clr Drug Dosing 29.7 ml/min eGFR 30.64 BUN/Creatinine Ratio 17.2 (10-20) Glucose 190 H (70-99(Fasting)) mg/dl Calcium 9.3 (8.6-10.3) mg/dl Total Bilirubin 1.1 H (0.2-1.0) mg/dl AST 23 (13-39) U/L ALT 24 (7-52) U/L Alkaline Phosphatase 103 (34-104) U/L Troponin I High Sens 24.8 H 24.5 H (0-20) pg/ml Total Protein 7.1 (6.0-8.3) gm/dl Albumin 3.6 (3.4-5.0) gm/dl Globulin 3.5 (2.5-4.0) gm/dl Albumin/Globulin Ratio 1.0 (0.9-2) Lipase 41 (11-82) U/L ECG Data Attestation: I personally reviewed and interpreted this ECG as follows: Rate (beats per minute): 102 Rhythm: sinus tachycardia Findings: no ST depression, no ST elevation or no prolonged QT Additional Comments: MI QRS and QTc intervals are within normal limits. Baseline artifact and wander secondary to patient movement MDM Narrative 194: The patient was evaluated in room C6. A complete history and physical exam was performed Cardiac monitoring: An order was placed for continuous cardiac monitoring. The monitor shows a rate of 100 with sinus rhythm interpreted by me External medical records reviewed. Patient had outpatient blood work today which showed a D-dimer of 4020. Patient's creatinine today was 1.74. Chest x- ray was conducted outpatient which was unremarkable. 2030: Vital signs stable. Labs show a elevated high-sensitivity troponin of 24.8. Patient will be admitted to the [facility] team to have a VQ scan done given his elevated creatinine and elevated D-dimer. Impression & Plan Chest pain, LUIS (acute kidney injury), D-dimer, elevated Discharge Plan Visit Data Chief Complaint: Referred by Doctor Stated Complaint: BLOOD CLOT RT LUNG CHECK, DOC REFERRAL ED Provider: Dionicio Rodriguez Discharge Problem: Chest pain, LUIS (acute kidney injury), D-dimer, elevated Patient Disposition: Admitted As Inpatient Condition: Fair Prescriptions Prescriptions: No Action (DME) blood sugar diagnostic Strip See Rx Instructions .ROUTE .MEDSUPPLY Qty: 300 3RF Rx Instructions: Test 3 times daily DX: E11.9 allopurinol 300 mg tablet 150 mg PO QAM Qty: 45 3RF metformin 1,000 mg tablet 500 mg PO BID Qty: 180 3RF Rx Instructions: with meals (DME) pen needle, diabetic 32 gauge x 5/32" needle See Rx Instructions miscellaneous .MEDSUPPLY Qty: 300 3RF Rx Instructions: use 3 x daily simvastatin 20 mg tablet 20 mg PO HS Qty: 90 3RF insulin aspart U-100 [Novolog FlexPen U-100 Insulin] 100 unit/mL (3 mL) insulin pen 6 unit subcut DAILY Qty: 15 2RF Rx Instructions: Inject 3 units with lunch; TDD up to 10 units if needed. telmisartan 80 mg tablet 80 mg PO QAM Qty: 90 3RF testosterone cypionate [Depo-Testosterone] 100 mg/mL oil 25 mg subcut Q7D Qty: 10 1RF Rx Instructions: MONDAYS Ozempic 0.25 mg or 0.5 mg (2 mg/3 mL) pen injector 0.25 mg subcut .Once a week Qty: 3 6RF Rx Instructions: Inject 0.25 mg once a week on the same day. Jardiance 10 mg tablet 10 mg PO DAILY Qty: 90 3RF Metamucil [place] Powder 1 tbsp PO DAILY (DME) blood-glucose meter [OneTouch Ultra2 Meter] Misc See Rx Instructions .ROUTE .MEDSUPPLY Rx Instructions: Use to check blood sugars (DME) lancets 33 gauge misc See Rx Instructions .ROUTE .MEDSUPPLY Rx Instructions: Test 3times daily spironolactone 25 mg tablet 25 mg PO DAILY Qty: 90 3RF Rx Instructions: Take 1 tablet daily insulin degludec [Tresiba FlexTouch U-100] 100 unit/mL (3 mL) insulin pen See Rx Instructions .ROUTE .COMPLEX Dose Instruction: INJECT 8 UNIT (0.08ML) SUBCUTANEOUSLY DAILY AT BEDTIME; TDD UP TO 20 UNITS A DAY IF NEEDED Rx Instructions: INJECT 10 UNIT (0.08ML) SUBCUTANEOUSLY DAILY AT BEDTIME; TDD UP TO 20 UNITS A DAY IF NEEDED ascorbic acid (vitamin C) [Vitamin C] 500 mg Tablet 500 mg PO QAM flaxseed powder 1 ea PO QAM Centrum Silver Men 300-600-300 mcg tablet 1 tab PO QAM cholecalciferol (vitamin D3) [Vitamin D3] 50 mcg (2,000 unit) capsule 2,000 unit PO UD Rx Instructions: 2,000 and alternating with 4,000 every other day Zn-pyg pbfj-zhqdlx-juz palmet Capsule 1 cap PO QAM alprazolam 0.25 mg tablet 0.25 mg PO UD PRN (Reason: anxiety) Patient Comments: none in over a year
--- NOTE | 2024-08-28 00:29 | Ultrasound Report ---
Exam(s): US VENOUS BILATERAL LOWER EXTREMITIES EXAM: US Duplex Bilateral Lower Extremities Veins CLINICAL HISTORY: assess for DVT. TECHNIQUE: Real-time duplex ultrasound scan of the bilateral lower extremity veins integrating B-mode two-dimensional vascular structure, Doppler spectral analysis, color flow Doppler imaging and compression. COMPARISON: No relevant prior studies available. FINDINGS: Right deep veins: Unremarkable. No DVT in the right common femoral, superficial femoral or popliteal veins. Right superficial veins: Unremarkable. No thrombus in the visualized right great saphenous vein. Left deep veins: Small non-occlusive thrombus in the proximal superficial femoral vein. No DVT in the left common femoral, mid and distal superficial femoral or popliteal veins Left superficial veins: Unremarkable. No thrombus in the visualized left great saphenous vein. Soft tissues: No acute abnormality. No popliteal cyst. IMPRESSION: Small non-occlusive thrombus in the proximal left superficial femoral vein. Electronically signed by: Wilfrido Travis M.D. 08/28/24 00:29 AM
--- NOTE | 2024-08-28 00:53 | CT Scan Report ---
Exam(s): CT CHEST Without Contrast EXAM: CT Chest Without Intravenous Contrast CLINICAL HISTORY: Right sided chest pain. TECHNIQUE: Axial computed tomography images of the chest without intravenous contrast. CTDI is 26.11 mGy and DLP is 1430.57 mGy-cm. Automated exposure control was utilized for the study. A dose lowering technique was utilized adhering to the principles of ALARA. COMPARISON: CXR 08-27-2024. FINDINGS: Lungs: Minimal bilateral dependent atelectasis. No mass. No consolidation. Pleural space: Unremarkable. No pneumothorax. No pleural effusion. Heart: Unremarkable. No cardiomegaly. No significant pericardial effusion. Coronary artery calcifications. Bones/joints: Degenerative changes of the spine. No acute fracture. Soft tissues: Unremarkable. Vasculature: Atherosclerotic vascular calcifications. No thoracic aortic aneurysm. Lymph nodes: Unremarkable. No enlarged lymph nodes. Abdomen: Calcified gallstones and probable sludge within the gallbladder. IMPRESSION: Minimal dependent atelectasis. No focal infiltrate. Atherosclerotic vascular calcifications. Otherwise no acute abnormality. Electronically signed by: Wilfrido Travis M.D. 08/28/24 00:52 AM
--- NOTE | 2024-08-28 00:55 | Nuclear Medicine Report ---
EXAM: NM pul perfusion CLINICAL HISTORY: pleuritic chest pain, hypoxia, elevated D-dimer TECHNIQUE: Following intravenous administration of [37.57] mCi of 99mTc-macroaggregated albumin (99mTc-MAA), perfusion images of the lungs were obtained in the anterior, posterior, bilateral oblique, and lateral projections. 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 FINDINGS: Perfusion Study: Diffuse homogeneous tracer uptake is observed on the perfusion images. No segmental perfusion defects are identified. No segmental perfusion defects are seen in the bilateral lung leon to suggest pulmonary embolism. Basal right medium-sized subsegmental perfusion defect. IMPRESSION: 1. Low probability of pulmonary embolism study suggests correlation with clinical findings. 2. Basal right medium-sized subsegmental perfusion defect core-related to the current CT, likely atelectatic band. Electronically signed by Julito Cason 08-28-2024 12:54 AM
--- NOTE | 2024-08-28 01:01 | CT Scan Report ---
Exam(s): CT ABDOMEN + PELVIS Without Contrast EXAM: CT Abdomen and Pelvis Without Intravenous Contrast CLINICAL HISTORY: Abdominal distension. TECHNIQUE: Axial computed tomography images of the abdomen and pelvis without intravenous contrast. CTDI is 23.37 mGy and DLP is 801.44 mGy-cm. Automated exposure control was utilized for the study. A dose lowering technique was utilized adhering to the principles of ALARA. COMPARISON: No relevant prior studies available. FINDINGS: Lung bases: Minimal dependent atelectasis. No mass. No consolidation. ABDOMEN: Liver: Unremarkable. Gallbladder and bile ducts: Well-distended gallbladder Partially calcified gallstones and probable gallbladder sludge, not well characterized. No ductal dilation. Pancreas: Partially fatty replaced. No ductal dilation. Spleen: Unremarkable. No splenomegaly. Adrenals: Unremarkable. No mass. Kidneys and ureters: No obstructive uropathy. No obstructing renal or ureteral calculi. No hydronephrosis or hydroureter. Stomach and bowel: Small fat containing periumbilical hernia. No obstruction or ileus. Abundant stool throughout the colon. Mild sigmoid colon diverticulosis without evidence for diverticulitis. PELVIS: Appendix: No findings to suggest acute appendicitis. Bladder: Partially contracted with nonspecific wall thickening. No stones. Reproductive: Prominent 5.2 x 4.1 cm prostate gland with calcifications. ABDOMEN and PELVIS: Intraperitoneal space: No free air. No free fluid. Bones/joints: No acute fracture. Degenerative changes of the lumbar spine and bilateral hips. Soft tissues: Unremarkable. Vasculature: Atherosclerotic vascular calcifications. No abdominal aortic aneurysm. Lymph nodes: Unremarkable. No enlarged lymph nodes. IMPRESSION: No bowel obstruction or ileus. Abundant stool throughout the colon. Mild sigmoid colon diverticulosis without diverticulitis. Partially calcified gallstones within the gallbladder. Gallbladder sludge. Can not exclude a soft tissue mass within gallbladder. Recommend correlation with right upper quadrant ultrasound when clinically appropriate. Atherosclerotic vascular calcifications. Senescent changes. Electronically signed by: Wilfrido Travis M.D. 08/28/24 01:00 AM
[2024-08-28] MEDS: Heparin IV Adult Wt-Based Standard w/ INITIAL Bolus Protocol IV STA (01:07)
[2024-08-28] MEDS: HEPARIN 25000 UNIT/500 ML D5W 25,000 UNITS/500 ML BAG IV SCH (01:09)
[2024-08-28] MEDS: HEPARIN IV BOLUS 7,000 UNITS in SYRINGE 0 ML IV ONE (01:10)
[2024-08-28] MEDS: ACETAMINOPHEN 325 MG TAB PO PRN (01:16)
[2024-08-28] MEDS: HYDROmorphone INJ 0.5 MG/0.5 ML SYR IV PRN (02:46)
[2024-08-28 06:17] LABS: Basophils # (auto) 0.03 K/uL (0.00-0.20); Basophils % (auto) 0.3 %; Eosinophils # (auto) 0.06 K/uL (0.00-0.50); Eosinophils % (auto) 0.7 %; Hematocrit (blood only) 43.3 % (42.0-52.0); Hemoglobin 14.6 g/dl (14.0-18.0); Immature Granulocytes # (auto) 0.04 K/uL (0.01-0.20); Immature Granulocytes % (auto) 0.4 %; Lymphocytes # (auto) 1.44 K/uL (1.20-3.40); Lymphocytes % (auto) 16.1 %; Mean Corpuscular Hemoglobin 32.1 pg (25.0-34.0); Mean Corpuscular Hgb Conc 33.7 g/dL (32.0-36.0); Mean Corpuscular Volume 95.2 fL (80.0-100.0); Mean Platelet Volume 9.3 fL (9.4-12.4); Monocytes # (auto) 0.87 K/uL (0.11-0.59); Monocytes % (auto) 9.7 %; Neutrophils # (auto) 6.53 K/uL (1.40-6.50); Neutrophils % (auto) 72.8 %; Platelet Count 122 K/uL (130-400); RDW Standard Deviation 45.1 fL (36.4-46.3); Red Blood Count 4.55 M/uL (4.70-6.10); White Blood Count 8.97 K/ul (4.8-10.8)
[2024-08-28 06:33] LABS: Albumin Globulin Ratio 1.2 (0.9-2); BUN Creatinine Ratio 21.5 (10-20); Bilirubin,Total 0.8 mg/dl (0.2-1.0); Calcium 8.8 mg/dl (8.6-10.3); Creatinine Clr Calc Pharmacy 34.3 ml/min; Globulin 2.9 gm/dl (2.5-4.0); Potassium 4.9 mmol/L (3.5-5.1); Total Protein 6.4 gm/dl (6.0-8.3)
[2024-08-28 07:27] LABS: ANTI-Xa, UFH(UnfractionatedHep 1.04 IU/ml (0.3-0.7)
--- NOTE | 2024-08-28 08:09 | Hospitalist Progress Note ---
Date of Service August 28, 2024 Assessment & Plan (1) Chest pain: (2) LUIS (acute kidney injury): (3) CKD stage 3 due to type 2 diabetes mellitus: (4) Hypertension: Plan This patient is an 83-year-old male with history of HTN, primary hypogonadism, DM2 with peripheral neuropathy, HLD, CKD stage III, osteopenia, gout, previous PMR now off steroids, lumbar spinal stenosis, OA, anxiety/insomnia, who presents to the ED with several days of right sided pleuritic chest pain radiating to the back, worse with deep breaths and coughing. He denies fevers or chills or productive cough. He had been working on his hands and knees on the deck the day that it started and thought at first that maybe he strained a muscle. It does not seem to get worse with any certain position or movement. He has been feeling less stamina and more short of breath over the past few days. He was s een in the outpatient PCP office today and had a pulse ox of 85% on the right hand and 93% on the left hand with sinus tachycardia. He was sent for a D-dimer test which was quite elevated at 4000. He was referred to the ER but because of a creatinine of 2.0, CT angiogram of the chest could not be performed. In the ED, he was with sinus tachycardia, normal blood pressure, mildly elevated troponin, pulse ox 93% on room air, and ECG without ischemic changes. No further treatment or diagnostic tests were performed in the ED. He will be admitted for further evaluation of right sided chest pain. #Right sided chest pain-with pleuritic right-sided chest pain, tachycardia, transient hypoxemia at PCP office, mildly elevated troponin, and significantly elevated D-dimer at 4000-concern for PE. No evidence of DVT on physical examination and no provoking factors for VTE (no recent procedures, long travel, no sedentary lifestyle, no hereditary hypercoagulable disorders, no known underlying malignancy). ECG without ischemic changes and do not suspect pain related to acute coronary syndrome. Does not seem to be worse with movement and no tenderness to palpation-does not seem to be MSK in nature. Lungs are clear but CXR with trace pleural effusion on my interpretation. - Admit to PCU for telemetry monitoring - Check VQ scan for probability of PE; check lower extremity Dopplers bilateral - Start empiric heparin drip while awaiting VQ scan-if VQ scan low probability and venous Dopplers lower extremities negative, can stop heparin drip - Check CT chest without contrast to assess for MSK injury, pneumonia or pulmonary infarct - Check CT abdomen/pelvis given abdominal distention and to assess for underlying malignancy in case of VTE - Trend serial troponin, check BNP - Check echocardiogram - Tylenol for mild pain, IV Dilaudid 0.25 Mg every 4 hours as needed moderate to severe pain #LUIS on CKD stage III-creatinine above baseline at 2.0, baseline 1.7. He does not follow with nephrology. - Hold home Jardiance, metformin, spironolactone, telmisartan - Follow BMP - Avoid nephrotoxins and renally dose medications when appropriate #DM2 with peripheral neuropathy/primary hypogonadism-follows with endocrinology, diabetes is well-controlled with HgbA1c 7.3% in 07/2024 - Continue Lantus 10 units at bedtime, NovoLog supplemental insulin - Holding home Ozempic, metformin, and Jardiance - Hold home testosterone injection #Gout/osteopenia-no acute issues - Continue home allopurinol #Anxiety/insomnia-no acute issues, has not taken alprazolam in a long time apparently #HTN/HLD-blood pressures are normal - Holding home spironolactone, telmisartan for LUIS - Continue home simvastatin #DVT prophylaxis-heparin drip Disposition-admit to PCU Admission and Anticipated Discharge Date Admission Date: August 27, 2024 Results & Data Results & Data Vital Signs (Past 12 Hours) Vital Signs Temp Pulse Pulse Resp BP BP Pulse Ox 08/28/24 07:51 36.9 C 91 H 18 145/77 H 93 08/28/24 04:23 36.7 C 73 18 116/70 90 08/27/24 23:53 36.7 C 105 H 16 144/76 H 97 08/27/24 21:42 94 H 21 120/75 95 08/27/24 20:30 96 H 23 115/69 94 O2 Del Method 08/28/24 07:51 Room Air 08/28/24 04:23 Room Air 08/27/24 23:53 Room Air 08/27/24 21:42 08/27/24 20:30 (4) Hypertension Hypertension type: primary hypertension Qualified Code(s): I10 - Essential (primary) hypertension
[2024-08-28] MEDS: INSULIN ASPART PER UNIT CHARGE SC SCH (08:19)
[2024-08-28] MEDS: allopurinoL 300 MG TAB PO SCH (08:19)
[2024-08-28] MEDS: POLYETHYLENE (MIRALAX) 17 GM PACK ONE (08:31)
[2024-08-28 09:25] LABS: ANTI-Xa, UFH(UnfractionatedHep 0.93 IU/ml (0.3-0.7)
--- NOTE | 2024-08-28 09:32 | Discharge Summary ---
Date of Service August 28, 2024 Admission HPI Per Admitting Provider This patient is an 83-year-old male with history of HTN, primary hypogonadism, DM2 with peripheral neuropathy, HLD, CKD stage III, osteopenia, gout, previous PMR now off steroids, lumbar spinal stenosis, OA, anxiety/insomnia, who presents to the ED with several days of right sided pleuritic chest pain radiating to the back, worse with deep breaths and coughing. He denies fevers or chills or productive cough. He had been working on his hands and knees on the deck the day that it started and thought at first that maybe he strained a muscle. It does not seem to get worse with any certain position or movement. He has been feeling less stamina and more short of breath over the past few days. He was seen in the outpatient PCP office today and had a pulse ox of 85% on the right hand and 93% on the left hand with sinus tachycardia. He was sent for a D-dimer test which was quite elevated at 4000. He was referred to the ER but because of a creatinine of 2.0, CT angiogram of the chest could not be performed. In the ED, he was with sinus tachycardia, normal blood pressure, mildly elevated troponin, pulse ox 93% on room air, and ECG without ischemic changes. No further treatment or diagnostic tests were performed in the ED. He will be admitted for further evaluation of right sided chest pain. Admission Exam Per Admitting Provider Constitutional: WD/WN, vitals as above Eyes: PERRL, conjunctivae normal, anicteric sclerae ENMT: external ear and nose normal, oropharynx normal Neck: trachea midline, no thyromegaly Respiratory: normal respiratory effort, lungs clear to auscultation Cardiovascular: RRR, no murmur, no edema Chest (Breasts): Chest: normal inspection of chest Additional Comments: No tenderness to palpation over chest wall or back Gastrointestinal (Abdomen): normal bowel sounds, soft, nontender, no hepatosplenomegaly (Mild distention) Musculoskeletal: Extremities: extremities normal to inspection; no cyanosis and no clubbing Skin: no rashes, warm and dry Neurologic: moves all extremities and awake; no focal motor deficits Psychiatric: A+Ox3, euthymic affect Lymphatic: no lymphedema Principal Diagnosis pulmonary embolism, right Discharge Exam Gen: A&Ox3, no acute distress HEENT: EOM intact, PERRL b/l CV: RRR, no m/r/g, no LE edema appreciated Resp: clear to auscultation b/l, good equal breath sounds b/l, no w/r/R GI/Abd: normoactive BS, abdomen soft, nontender to palpation MSK: 5/5 strength in all extremities, b/l LE nontender to palpation w/ no notable erythema or swelling, negative louis's b/l Neuro: no facial droop, speech intact Discharge Data Allergies Allergy/AdvReac Type Severity Reaction Status Date / Time doxycycline Allergy Intermediate Rash Verified 08/27/24 12:52 Penicillins Allergy Mild Hives Verified 08/27/24 12:52 VARINDER Inhibitors Allergy Unknown Unknown Verified 08/27/24 12:52 Beta-Blockers Allergy Unknown Unknown Verified 08/27/24 12:52 (Beta-Adrenergic Bloc clindamycin Allergy Unknown Unknown Verified 08/27/24 12:52 losartan Allergy Unknown Unknown Verified 08/27/24 12:52 sitagliptin Allergy Unknown Unknown Verified 08/27/24 12:52 semaglutide [From Ozempic] AdvReac Intermediate Diarrhea Verified 08/27/24 12:52 Consultations 08/27/24 20:28 ED Decision to Admit Stat Ordered Studies 08/27/24 20:55 US venous doppler LE BI Stat 08/27/24 21:58 CT Abd and Pelvis [CT abd pelvis wo con] Stat CT chest diagnostic wo con Stat 08/28/24 08:05 US RUQ [US liver] Routine Hospital Course (1) Chest pain: (2) LUIS (acute kidney injury): (3) CKD stage 3 due to type 2 diabetes mellitus: (4) Hypertension: Plan This patient is an 83-year-old male with history of HTN, primary hypogonadism, DM2 with peripheral neuropathy, HLD, CKD stage III, osteopenia, gout, previous PMR now off steroids, lumbar spinal stenosis, OA, anxiety/insomnia, who presents to the ED with several days of right sided pleuritic chest pain radiating to the back, worse with deep breaths and coughing. He denies fevers or chills or productive cough. He had been working on his hands and knees on the deck the day that it started and thought at first that maybe he strained a muscle. It does not seem to get worse with any certain position or movement. He has been feeling less stamina and more short of breath over the past few days. He was seen in the outpatient PCP office today and had a pulse ox of 85% on the right hand and 93% on the left hand with sinus tachycardia. He was sent for a D-dimer test which was quite elevated at 4000. He was referred to the ER but because of a creatinine of 2.0, CT angiogram of the chest could not be performed. In the ED, he was with sinus tachycardia, normal blood pressure, mildly elevated troponin, pulse ox 93% on room air, and ECG without ischemic changes. No further treatment or diagnostic tests were performed in the ED. You were admitted for R-sided pleuritic chest pain in the setting of elevated D- dimer and presence of superficial clot in left superficial femoral vein. Clinically this should be suspected and treated as a blood clot in the R pulmonary vasculature. You were placed on IV heparin to help dissolve the clot. As your vital signs have stabilized and pain has much resolved, and able to tend to your activities of daily living, we are comfortable to discharge you home on the condition that you continue anticoagulation as directed, initially for treatment and thereafter for prevention. #Pulmonary Embolism-with pleuritic right-sided chest pain, tachycardia, transient hypoxemia at PCP office, mildly elevated troponin, and significantly elevated D-dimer at 4000-concern for PE. ECG without ischemic changes and do not suspect pain related to acute coronary syndrome. Lungs are clear but CXR with trace pleural effusion. - Eliquis (apixapan) - anticoagulant Week 1: starting today in hospital, you were given 10mg (2x 5mg tablets) in AM. Please continue to take 10mg TWICE daily, at or close to 12hrs apart if possible, for 7 days total, last day being 09/03/24 For the ~3 months after week 1: starting Saturday09/04/24, please take 5mg (one 5mg tablet) TWICE daily until the end of Nov - early Dec; please follow up with your PCP to obtain refills as we have only prescribed a 30-day supply following week 1 - continue physical activity as tolerated, encouraged about every hour to walk around and stretch during long car/train/plane rides #ULIS on CKD stage III Creatinine above baseline but improving; baseline 1.7. - PCP followup appointment next week to hold/change any chronic meds, consider nephrology referral - Continue home Jardiance, metformin, spironolactone, telmisartan for now - Avoid nephrotoxins and renally dose medications when appropriate #DM2 with peripheral neuropathy/primary hypogonadism Discuss holding any meds vs dose changes with PCP - Continue Lantus 10 units at bedtime, NovoLog supplemental insulin - Continue home Ozempic, metformin, and Jardiance - Continue home testosterone injection #Gout/osteopenia-no acute issues - Continue home allopurinol #Anxiety/insomnia-no acute issues, has not taken alprazolam in a long time apparently #HTN/HLD, at goal - Continue home spironolactone, telmisartan - Continue home simvastatin Total Time Total Time Spent Total Time Spent (In Minutes): >30 Discharge Plan Discharge Items Patient Disposition: Home - Self-Care Reason For Visit: CHEST PAIN, PPE Discharge Diagnosis: PE, right Condition on Discharge: Fair Activity: Per Instructions section Non-emergency contact: Primary Care Provider Call non-emergency contact if: your symptoms worsen and your pain is not controlled Follow-up/Referrals: ProViet MD [Primary Care Provider] - 09/07/24 3:00 pm (Hospital follow up scheduled for September 07, 2024 at 3:00 pm with Sofia Tuttle PA-C) Diet: Regular Addtl Attending Provider Instructions: You were admitted for R-sided pleuritic chest pain in the setting of elevated D- dimer and presence of superficial clot in left superficial femoral vein. Clinically this should be suspected and treated as a blood clot in the R pulmonary vasculature. You were placed on IV heparin to help dissolve the clot. As your vital signs have stabilized and pain has much resolved, and able to tend to your activities of daily living, we are comfortable to discharge you home on the condition that you continue anticoagulation as directed, initially for treatment and thereafter for prevention. #Pulmonary Embolism-with pleuritic right-sided chest pain, tachycardia, transient hypoxemia at PCP office, mildly elevated troponin, and significantly elevated D-dimer at 4000-concern for PE. ECG without ischemic changes and do not suspect pain related to acute coronary syndrome. Lungs are clear but CXR with trace pleural effusion. - Eliquis (apixapan) - anticoagulant Week 1: starting today in hospital, you were given 10mg (2x 5mg tablets) in AM. Please continue to take 10mg TWICE daily, at or close to 12hrs apart if possible, for 7 days total, last day being 09/03/24 For the ~3 months after week 1: starting Saturday09/04/24, please take 5mg (one 5mg tablet) TWICE daily until the end of Nov - early Dec; please follow up with your PCP to obtain refills as we have only prescribed a 30-day supply following week 1 - continue physical activity as tolerated, encouraged about every hour to walk around and stretch during long car/train/plane rides #LUIS on CKD stage III Creatinine above baseline but improving; baseline 1.7. - PCP followup appointment next week to hold/change any chronic meds, consider nephrology referral - Continue home Jardiance, metformin, spironolactone, telmisartan for now - Avoid nephrotoxins and renally dose medications when appropriate #DM2 with peripheral neuropathy/primary hypogonadism Discuss holding any meds vs dose changes with PCP - Continue Lantus 10 units at bedtime, NovoLog supplemental insulin - Continue home Ozempic, metformin, and Jardiance - Continue home testosterone injection #Gout/osteopenia-no acute issues - Continue home allopurinol #Anxiety/insomnia-no acute issues, has not taken alprazolam in a long time apparently #HTN/HLD, at goal - Continue home spironolactone, telmisartan - Continue home simvastatin Pending Studies at Discharge: No Stand-Alone Forms: [facility] [employer] [place], Smoking Cessation Medications and DC Order Prescriptions: New apixaban 5 mg tablet 5 mg PO BID Qty: 86 0RF Rx Instructions: Week 1: 10mg twice daily dosing: you were given AM dose of Eliquis 10mg (2x 5mg tablets), so please continue dosing at home this PM with an additional 10mg (2 tablets) twice daily through 09/03/24. First 30 days after week 1: starting on 09/04/24, switch to 5mg (1 tablet) twice daily dosing - 30 day supply given but you must continue taking this for a total of 3-6mos, so please follow up with your PCP for additional refills. Continued (DME) blood sugar diagnostic Strip See Rx Instructions .ROUTE .MEDSUPPLY Qty: 300 3RF Rx Instructions: Test 3 times daily DX: E11.9 allopurinol 300 mg tablet 150 mg PO QAM Qty: 45 3RF metformin 1,000 mg tablet 500 mg PO BID Qty: 180 3RF Rx Instructions: with meals (DME) pen needle, diabetic 32 gauge x 5/32" needle See Rx Instructions miscellaneous .MEDSUPPLY Qty: 300 3RF Rx Instructions: use 3 x daily simvastatin 20 mg tablet 20 mg PO HS Qty: 90 3RF insulin aspart U-100 [Novolog FlexPen U-100 Insulin] 100 unit/mL (3 mL) insulin pen 6 unit subcut DAILY Qty: 15 2RF Rx Instructions: Inject 3 units with lunch; TDD up to 10 units if needed. telmisartan 80 mg tablet 80 mg PO QAM Qty: 90 3RF testosterone cypionate [Depo-Testosterone] 100 mg/mL oil 25 mg subcut Q7D Qty: 10 1RF Rx Instructions: MONDAYS Ozempic 0.25 mg or 0.5 mg (2 mg/3 mL) pen injector 0.25 mg subcut .Once a week Qty: 3 6RF Rx Instructions: Inject 0.25 mg once a week on the same day. Jardiance 10 mg tablet 10 mg PO DAILY Qty: 90 3RF Metamucil [place] Powder 1 tbsp PO DAILY (DME) blood-glucose meter [OneTouch Ultra2 Meter] Misc See Rx Instructions .ROUTE .MEDSUPPLY Rx Instructions: Use to check blood sugars (DME) lancets 33 gauge misc See Rx Instructions .ROUTE .MEDSUPPLY Rx Instructions: Test 3times daily spironolactone 25 mg tablet 25 mg PO DAILY Qty: 90 3RF Rx Instructions: Take 1 tablet daily insulin degludec [Tresiba FlexTouch U-100] 100 unit/mL (3 mL) insulin pen See Rx Instructions .ROUTE .COMPLEX Dose Instruction: INJECT 8 UNIT (0.08ML) SUBCUTANEOUSLY DAILY AT BEDTIME; TDD UP TO 20 UNITS A DAY IF NEEDED Rx Instructions: INJECT 10 UNIT (0.08ML) SUBCUTANEOUSLY DAILY AT BEDTIME; TDD UP TO 20 UNITS A DAY IF NEEDED ascorbic acid (vitamin C) [Vitamin C] 500 mg Tablet 500 mg PO QAM flaxseed powder 1 ea PO QAM Centrum Silver Men 300-600-300 mcg tablet 1 tab PO QAM cholecalciferol (vitamin D3) [Vitamin D3] 50 mcg (2,000 unit) capsule 2,000 unit PO UD Rx Instructions: 2,000 and alternating with 4,000 every other day Zn-pyg dush-[id number]-vkn palmet Capsule 1 cap PO QAM alprazolam 0.25 mg tablet 0.25 mg PO UD PRN (Reason: anxiety) Patient Comments: none in over a year Discharge Orders: Discharge Order (Routine); Ordered 08/28/24 Ordered By: Johnathon Clayton/Other Patient Handouts: D-Dimer, Apixaban Oral Tablet, Pulmonary Embolism, Pulmonary Embolism Dc Admission Data Admit Date/Time: 08/27/24 22:08 Attending Provider: Ulises Wright Admit Provider: Nohemi Palomino Primary Care Provider: Viet Navarro Other Providers: Nohemi Palomino Other Interventions: Discharge Summary Assessment (RN) Last Done: 08/28/24 15:04 Supervising Physician Co-Signing Physician Notes I personally examined the patient and verified all hernandez points of history and exam, discussed case, and agree with decision making with Dr Frey feeling better CP better less BARR. feels up to going home. extensive d/w pt and family and answered all questions to the best of my ability vitals noted nad heent nc at mmm breathing unlabored no accessory muscles good effort skin no rashes no pallor or icterus; labs and diagnostics noted PE -(+) Ddimer, characteristic symptoms, abnormal (albeit nonspecifically abnormal) perfusion study, superficial femoral clot noted on doppler all would plead case for PE; w/u with zero yield for alternative dx makes it even more likely (unable to safely do CTA due to CrCl) -eliquis - 10mg bid x 7 days, then 5mg bid for 3 months or sx resolve (whichever comes later) then would anticipate chronic proph w 2.5mg bid given essentially unprovoked clot; bleed risk/rules for safety discussed -safe/stable for home -extensive discussions w pt and family/answered all questions to the best of my ability Resident Activity Tracking Resident Involvement: Resident Care Provided Care Provided: Adult Hospital Medicine
[2024-08-28] MEDS: APIXABAN 5 MG TABLET PO STA (10:02)
[2024-08-28 12:27] VITALS: RESP 16; TEMP 98.2
--- NOTE | 2024-08-28 13:23 | Electrocardiogram Report ---
Test Reason : Blood Pressure : */* mmHG Vent. Rate : 102 BPM Atrial Rate : 102 BPM P-R Int : 360 ms QRS Dur : 88 ms QT Int : 312 ms P-R-T Axes : 50 59 62 degrees QTcB Int : 406 ms Sinus tachycardia with 1st degree A-V block Otherwise normal ECG No previous ECGs available Confirmed by Viet Melara ([id number]) on 08/28/2024 1:23:01 PM Referred By: Wilfrido Lentz Confirmed By: Viet Melara
--- NOTE | 2024-08-28 14:08 | XCELERA ---
[id number]
--- NOTE | 2024-08-28 14:09 | Ultrasound Report ---
US liver CLINICAL HISTORY: f/u on possible soft tissue mass GB COMPARISON STUDY: CT of the abdomen and pelvis 08/27/2024. FINDINGS: Liver is sonographically normal. There is no biliary ductal dilatation. Numerous gallstones within the gallbladder account for the findings on CT of August 27, 2024. No gallbladder mass is ident ified by sonography. There is no gallbladder wall thickening. The gallbladder is moderately distended . No sonographic Montejo sign was elicited. Pancreas is obscured by bowel gas. There is no right hydro nephrosis. IMPRESSION: 1. Cholelithiasis which accounts for the findings on CT of August 27, 2024. No gallbladder mass identif ied by sonography. Distended gallbladder without evidence for acute cholecystitis. 2. No biliary ductal dilatation. 3. Obscured pancreas. ACT 112: Negative or not required by law. Electronically signed by: Humberto Duque M.D. 08/28/2024 2:07 PM
[2024-08-28 15:32] LABS: ANTI-Xa, UFH(UnfractionatedHep > 1.50 IU/ml (0.3-0.7)
[2024-08-28 16:48] VITALS: BP 129/62; PULSE 89; O2SAT 92
--- NOTE | 2024-08-28 16:52 | Billing Data ---
Date of Service August 28, 2024 Coding Level of Care Code 65734 INP/OBS DISCH >30 MIN
[2024-08-28 18:03] LABS: ANTI-Xa, UFH(UnfractionatedHep > 1.50 IU/ml (0.3-0.7)
[2024-08-28] MEDS ORDERED: LANTUS PER UNIT CHARGE SQ SCH (21:00)
[2024-08-28] MEDS ORDERED: SIMVASTATIN 20 MG TAB PO SCH (21:00)
[2024-09-02 01:33] LABS: Anti Cardiolipin Ab IgG <2.0 GPL-U/mL; Anti Cardiolipin Ab IgM 20.7 MPL-U/mL; B2 Glycoprotein IgG <2.0 U/mL (<20.0); B2 Glycoprotein IgM 17.3 U/mL (<20.0)
[2024-09-06 02:47] LABS: Factor 5 Mutation NEGATIVE
== END 2024-08-28 18:17 | disposition home or self-care (01) | DRG 176 ==
LOC: ED 19:31 → INTOOBSV 22:08 → 2S 22:08 → OBSVTOIN 22:08 → SUATTDRO 22:08 → 2S 23:15